=== PATIENT | male | born 1990 | race Caucasian/White ===

== ENCOUNTER 2019-10-22 16:02 | Emergency (ER) | payer OTHER ==
[~2019-10-22] VITALS: Ht 170.2 cm; Wt 93.9 kg
[2019-10-22 16:19] VITALS: Ht 170.2 cm; Wt 93.9 kg
[2019-10-22 18:01] LABS: CALCIUM 9.1 mg/dL (8.5-10.1); CARBON DIOXIDE 26.3 mmol/L (21-32); CHLORIDE SERUM 103 mmol/L (98-107); CREATININE SERUM 0.9 mg/dL (0.7-1.3); GFR1 > 60 mL/min; GLUCOSE SERUM 115 mg/dL (74-106); POTASSIUM SERUM 3.7 mmol/L (3.5-5.1); SODIUM SERUM 140 mmol/L (136-145)
[2019-10-22 18:04] LABS: BASOPHIL % 0.4 % (0-2); PLATELET COUNT 258 x10^3mcL (130-400); RED CELL DISTRIBUTION WIDTH 13.4 % (11.5-14.5)
[2019-10-22 18:13] LABS: ALBUMIN 4.1 g/dL (3.4-5.0); ALKALINE PHOSPHATASE 91 U/L (46-116); ALT/SGPT 78 U/L (16-63); AST/SGOT 28 U/L (15-37); LIPASE 93 IU/L (73-393); TOTAL PROTEIN, SERUM 7.7 g/dL (6.4-8.2)
[2019-10-22 18:14] LABS: UA SPECIFIC GRAVITY 1.025 (1.005-1.035); microscopic required? YES; urine erythrocyte 2+ (NEGATIVE)
[2019-10-22 19:45] VITALS: BP 125/87
== END 2019-10-22 19:45 | disposition home or self-care (01) ==
LOC: ED 16:02
PROVIDERS: Emergency Medicine
DX: N13.2 Hydronephrosis with renal and ureteral calculous obstruction (principal); R31.9 Hematuria, unspecified
CPT/HCPCS: 36415